=== PATIENT | male | born 1985 | race Caucasian/White ===

== ENCOUNTER 2019-01-19 11:58 | Day surgery (SDC) | payer OTHER, SELFPAY ==
[2019-01-10 12:22] VITALS: BMI 25.7
[2019-01-19] VITALS (11 sets, daily range): BP systolic 93–127; BP diastolic 45–85; PULSE 54–64; RESP 10–18; TEMP 36.4–36.7; O2SAT 96–100; BMI 24.0
[2019-01-19] MEDS: LACTATED RINGERS 1,000 ML 100 ML IV (13:21)
--- NOTE | 2019-01-19 13:46 | PM.PREOP ---
Pre-operative Note Interval Note History & Physical reviewed/Exam performed by Physician: Yes Changes to H&P: No H&P completed within 30 days and has changed as indicated here:: No change from history and physical of 01/03 office visit
[2019-01-19] MEDS: CEFAZOLIN 2 GM/100 ML FROZ.PIGGY IV (14:05)
--- NOTE | 2019-01-19 14:26 | SUR.OPER ---
Supine on padded OR bed, head on pillow, arms secured on padded arm boards at <90 degrees abduction, legs uncrossed, safety belt at thigh, tape over blanket over lower legs.
[2019-01-19] MEDS: BUPIVACAINE 0.5% (PF) VIAL 30 ML INJ (14:32)
--- NOTE | 2019-01-19 15:08 | PM.OP.1 ---
Operative Date/Time/Diagnoses Date of procedure: 01/19/19 Time of procedure: 15:08 Pre-op diagnosis: Epigastric hernia incarcerated Post-op diagnosis: same (Preperitoneal fat within the hernia) Procedure & Clinicians Procedure: Repair of epigastric hernia Same procedure as scheduled: Yes Indications: Symptomatic epigastric hernia Surgeon: Robert Díaz Anesthesia Type: General Operative Notes Findings: Fatty mass within the hernia which was unable to be reduced even open. It was removed. The defect itself was only about 5 mm across. Closure Type: primary Specimen(s): none sent Estimated Blood Loss (mL): 5 Blood products transfused: none Procedure in detail: The patient was placed supine on the operating room table and underwent general LMA anesthesia. He was prepped and draped in the usual fashion. A small incision was made overlying the palpable mass in his upper abdomen. Was carried down under direct vision to the level of the hernia sac and hernia contents. The sac was opened and the contents consisted of a lobulated segment of fat which could not be reduced. Therefore it was resected at the level of the fascia. The fascial defect was cleared of tissue. It was tiny about 5 mm in diameter. Was closed with 0 Ethibond interrupted suture. Local anesthetic was infiltrated. The subcu was closed with interrupted 3 0 Vicryl. The skin was closed with a running 4 0 Vicryl subcuticular stitch and Steri-Strip. Dressing was applied the patient was awakened extubated and taken to recovery area in good condition. Complications: none Condition: stable Disposition: PACU Plan for aftercare: Follow-up in the office
[2019-01-19] MEDS: fentaNYL 100 MCG/2 ML INJ 50 MCG IV ×2 (15:32→15:44)
[2019-01-19] MEDS: HYDROCODONE/ACET 5/325 TABLET 1 TAB PO (15:52)
--- NOTE | 2019-01-19 20:41 | SUR.PHASEII ---
Late entry: pt in hurry to leave, needing to have friend pickler helper his child. Dressing remained c/d/i. No nausea, pain tolerable . assisted pt to dress then pt left when ready in stable condition.
== END 2019-01-19 16:25 | disposition home or self-care (01) ==
PROVIDERS: PCP Family Medicine; Visit Provider Specialist
PROC: (CPT 49572; principal; 2019-01-19 13:45)
DX: K43.9 Ventral hernia without obstruction or gangrene (principal)
CPT/HCPCS: 49572; J0690; J1100; J2250; J2405; J2704; J3010